=== PATIENT | female | born 1945 | race Caucasian/White ===

== ENCOUNTER 2019-05-31 11:11 | Inpatient (IN) | payer BC, MEDICARE ==
[~2019-05-31] VITALS: Ht 170.2 cm; Wt 69.6 kg
[2019-05-31] MEDS ORDERED: FLUO20CA19 PO (11:22)
[2019-05-31] MEDS ORDERED: ASPI81TA85 PO (11:22)
[2019-05-31] MEDS ORDERED: METO1TAB33 PO (11:22)
[2019-05-31] MEDS ORDERED: ROSU40TA4 PO (11:22)
[2019-05-31] MEDS ORDERED: AMIT50TA PO (11:22)
[2019-05-31] MEDS ORDERED: LEVE500T5 PO (11:22)
[2019-05-31] MEDS ORDERED: BUPR150T3 PO (11:22)
[2019-05-31] MEDS ORDERED: LOPE2CA PO (11:22)
[2019-05-31] MEDS ORDERED: CVS10CAP7 PO (11:22)
[2019-05-31] MEDS ORDERED: LISI-542 PO (11:22)
[2019-05-31] MEDS ORDERED: LORazepam 2 MG/ML VIAL (J2060) IV STA (12:08)
--- NOTE | 2019-05-31 12:13 | REP ---
CT BRAIN WITHOUT CONTRAST: CT brain performed without IV contrast. There is mild atrophy. There is no midline shift or mass effect. There are mild periventricular small vessel ischemic changes in the white matter which are probably chronic in nature. In the region of the left basal ganglia and internal capsule, there is a small linear hyperdense focus. This could represent acute thrombus in a lenticulostriate arterial branch, or could represent a tiny focus of acute hemorrhage. There are no other areas of hemorrhage. There are vascular calcifications in the carotid siphons. There appears to be an old small lacunar infarct in the right basal ganglia. IMPRESSION: Linear hyperdense focus in the left basal ganglia/internal capsule region. This could represent acute thrombus in a lenticulostriate arterial branch versus a tiny focus of acute hemorrhage. I see no other acute finding. Dr. Diallo was informed of these findings at the time of the exam by telephone at approximately 11:45 a.m. 05/31/2019. There appears to be an old small lacunar infarct in the right basal ganglia. Electronically Signed by Dennis Myers MD 06/03/2019 12:58 P
[2019-05-31 12:15] LABS: BASO % 0.1 % (0.0-1.0); HEMATOCRIT 36.5 % (36.0-47.0); LYMPH # 0.4 10^3/uL (1.5-4.5); LYMPH % 5.9 % (24.0-44.0); MEAN CORPUSCULAR HEMOGLOBIN 28.2 pg (27.0-33.0); MEAN CORPUSCULAR HGB CONC 32.9 g/dl (32.0-36.5); MEAN CORPUSCULAR VOLUME 85.7 fl (80.0-96.0); MONO # 0.7 10^3/uL (0.0-0.8); NEUTROPHILS # 6.1 10^3/uL (1.8-7.7); NEUTROPHILS % 84.7 % (36.0-66.0); PLATELET COUNT, AUTOMATED 129 10^3/uL (150-450); RED BLOOD COUNT 4.26 10^6/uL (4.00-5.40); WHITE BLOOD COUNT 7.2 10^3/uL (4.0-10.0)
--- NOTE | 2019-05-31 12:16 | REP ---
PORTABLE CHEST X-RAY: Single view. HISTORY: CVA. Comparison chest x-ray is from July 07, 2006. FINDINGS: There is a new fairly large hiatal hernia. There is an alveolar opacity in the left base consistent with an infiltrate. This is large. The left hemidiaphragm is obscured and I cannot exclude left pleural fluid. Heart is enlarged. Pulmonary vasculature is not increased. EKG electrodes are seen. Right lung is clear. IMPRESSION: Large infiltrate left base question pneumonia. Large hiatal hernia. Mildly prominent heart. Question small left effusion. Electronically Signed by Matt Ye MD 05/31/2019 12:40 P
[2019-05-31 12:25] LABS: INR 1.29; PARTIAL THROMBOPLASTIN TIME 33.2 SECONDS (25.0-38.4); PROTHROMBIN TIME 15.8 SECONDS (11.8-14.0)
[2019-05-31 12:43] LABS: BLOOD UREA NITROGEN 19 MG/DL (7-18); CALCIUM LEVEL 7.9 MG/DL (8.8-10.2); CARBON DIOXIDE LEVEL 25 MEQ/L (21-32); CHLORIDE LEVEL 97 MEQ/L (98-107); CK-MB VALUE MASS < 1.0 NG/ML (<3.6); CPK CREATINE PHOSPHOKINASE 74 U/L (26-192); CREATININE FOR GFR 1.03 MG/DL (0.55-1.30); GLOMERULAR FILTRATION RATE 55.6 (>39); GLUCOSE, FASTING 103 MG/DL (70-100); MB/CK RELATIVE INDEX 1.35 (< OR =4); POTASSIUM SERUM 4.4 MEQ/L (3.5-5.1); SODIUM LEVEL 130 MEQ/L (136-145); TROPONIN I < 0.02 NG/ML (< 0.10)
[2019-05-31] MEDS ORDERED: PROHANCE 279.3MG/ML 15ML VIAL (A9576) As Ordered ONE (12:47)
[2019-05-31] MEDS ORDERED: ISOVUE-370 76% 100ML VIAL (Q9967) As Ordered ONE (14:00)
--- NOTE | 2019-05-31 14:19 | REP ---
MR ANGIOGRAPHY OF THE CAROTIDS WITHOUT AND WITH IV CONTRAST: HISTORY: Dizziness. Weakness. Possible bleed. CONTRAST ENHANCEMENT DOSE: 12 mL of intravenous ProHance. MR ANGIOGRAPHIC FINDINGS: The visualized thoracic arch and great vessel origins are unremarkable. Vertebral arteries are patent and codominant. Common carotid arteries are unremarkable. There is moderate atherosclerotic plaquing in the proximal ICAs bilaterally with evidence of focal weblike high-grade stenosis in the proximal ICA on the right, 75% stenosis. There is a 1 cm long irregular plaque with 75% stenosis of the left proximal ICA as well. The distal internal carotid arteries are patent and unremarkable. IMPRESSION: Findings consistent with 75% stenosis in the proximal internal carotid arteries bilaterally. Electronically Signed by Matt Ye MD 05/31/2019 08:14 P
--- NOTE | 2019-05-31 14:55 | REP ---
MRI BRAIN WITHOUT CONTRAST: HISTORY: Confusion weakness and dizziness. Possible bleed. CT study May 31, 2019 TECHNIQUE: Axial and sagittal imaging planes are utilized for T1 and T2-weighted scans. Sequences include spin-echo, fast spin echo, FLAIR, and diffusion weighted sequences. MRI FINDINGS: No calvarial abnormality is seen. Craniocervical junction upper cervical cord are unremarkable. There is mild motion artifact on several of the sequences. There is a subcentimeter lacunar infarct in the right basal ganglia as seen on CT. Diffusion weighted scans show no evidence of restricted diffusion to suggest acute ischemia. There is mild generalized atrophy and there are multifocal areas of subcortical and periventricular white matter hyperintensities on T2-weighted scans consistent with small vessel atherosclerotic changes. There is no evidence of intracranial hemorrhage or acute infarction or mass. IMPRESSION: Generalized volume loss, small vessel atherosclerotic changes, old lacunar infarct right basal ganglia. No acute intracranial lesion. Electronically Signed by Matt Ye MD 05/31/2019 08:15 P
[2019-05-31] MEDS ORDERED: cefTRIAXone SOD 2 GM in D5W MINI-BAG PLUS 50 ML IV ONE (15:15)
[2019-05-31] MEDS ORDERED: NS 1,000 ML IV ONE (15:15)
[2019-05-31] MEDS ORDERED: AZITHROMYCIN INJ 500 MG, VIAL MATE ADAPTER 1 EACH in D5W 250 ML IV ONE (15:15)
--- NOTE | 2019-05-31 15:34 | REP ---
CT ANGIOGRAM OF THE CHEST: TECHNIQUE: Axial contrast enhanced images from the thoracic inlet to the upper abdomen using 100 mL Isovue 370 intravenous contrast material with multiplanar reformations. There is no CT evidence of pulmonary embolism. There is no thoracic aortic aneurysm or dissection. Scattered atherosclerotic calcifications are seen of the thoracic aorta. Slightly prominent mediastinal and left hilar lymph nodes are likely reactive. Heart is normal in size. There is very mild pericardial fluid. There is a small left effusion. Left lower lobe consolidation is present. There is a large hiatal hernia. Several tiny calcified granulomas are seen in the right lung. IMPRESSION: Consolidative infiltrate left lower lobe with small left effusion. Reactive left hilar and mediastinal lymph nodes. Tiny pericardial effusion. Large hiatal hernia. Electronically Signed by Dennis Myers MD 06/03/2019 01:06 P
--- NOTE | 2019-05-31 16:04 | HPEPDOC ---
[facility] Medical History & Physical Date of Admission May 31, 2019 History and Physical CHIEF COMPLAINT: dizziness, malaise HISTORY OF PRESENT ILLNESS: 74 yo female for one week history of generalized weakness, malaise, fatigue and dizziness. Denies shortness of breath but notes coughing. Denies chest pain, abdominal pain, N/V/D. PAST MEDICAL HISTORY: 1. CAD/stents x 2 RCA, 2000 2. Colon CA s/p resection 2016 3. depression 4. HTN 5. DLP 6. Frontal lobe seizures 7. nicotine abuse PAST SURGICAL HISTORY: 1. colon resection ALLERGIES: Please see below. REVIEW OF SYSTEMS: Negative except as per HPI HOME MEDICATIONS: Please see below. PHYSICAL EXAMINATION: VITAL SIGNS: See below GENERAL APPEARANCE: NAD, lying comfortably in bed HEENT: NC/AT, EOMI CARDIOVASCULAR: +S1S2, RRR LUNGS: diminished breath sounds on left, CTA ABDOMEN: soft, NT, +BS PSYCHIATRIC: AAOx3 LABORATORY DATA: See below. MICROBIOLOGY: Please see below. ASSESSMENT: 74 yo female for multiple symptoms for one week including dizziness, malaise, lethargy, fatigue found to have left lower lobe pneumonia #CAP - IV ceftriaxone/azithromycin - IV fluids - SCx, BCX pending #acute hypoxic respiratory failure - secondary to PNA - supplemental oxygen as needed, wean as tolerated #carotid artery disease - o/p follow up #HTN/#CAD - aspirin, lisinopril, metoprolol #seizure d/o - amitriptyline, bupropion #DLP - rosuvastatin #depression - fluoxetine #Hx colon CA #nicotine abuse - nicotine replacement therapy if requested - counselling provided at bedside #DVT prophylaxis - lovenox Vital Signs Vital Signs Date Time Temp Pulse Resp B/P (MAP) Pulse Ox O2 Delivery O2 Flow Rate FiO2 05/31/19 15:30 72 16 98 Nasal Cannula 2.0 05/31/19 14:46 90/67 (75) 05/31/19 12:15 97.3 Laboratory Data Labs 24H Laboratory Tests 2 05/31/19 11:49: Bedside Glucose (Misc Panel) 108 05/31/19 11:58: Immature Granulocyte % (Auto) 0.3, White Blood Count 7.2, Red Blood Count 4.26, Hemoglobin 12.0, Hematocrit 36.5, Mean Corpuscular Volume 85.7, Mean Corpuscular Hemoglobin 28.2, Mean Corpuscular Hemoglobin Concent 32.9, Red Cell Distribution Width 15.3H, Platelet Count 129L, Neutrophils (%) (Auto) 84.7H, Lymphocytes (%) (Auto) 5.9L, Monocytes (%) (Auto) 9.0H, Eosinophils (%) (Auto) 0.0, Basophils (%) (Auto) 0.1, Neutrophils # (Auto) 6.1, Lymphocytes # (Auto) 0.4L, Monocytes # (Auto) 0.7, Eosinophils # (Auto) 0.0, Basophils # (Auto) 0.0, Nucleated Red Blood Cells % (auto) 0.0, Prothrombin Time 15.8H, Prothromb Time International Ratio 1.29, Activated Partial Thromboplast Time 33.2, Anion Gap 8, Glomerular Filtration Rate 55.6, Blood Urea Nitrogen 19H, Creatinine 1.03, Sodium Level 130L, Potassium Level 4.4, Chloride Level 97L, Carbon Dioxide Level 25, Calcium Level 7.9L, Total Creatine Kinase 74, Creatine Kinase MB < 1.0, Creatine Kinase MB Relative Index 1.35, Troponin I < 0.02 05/31/19 12:18: POC Glucose (Misc Panel) 107H, POC Sodium (Misc Panel) 128L, POC Potassium (Misc Panel) 4.2, POC Chloride (Misc Panel) 92L, POC Total CO2 (Misc Panel) 23.0, POC Blood Urea Nitrogen (Misc Panel 17, POC Ionized Calcium (Misc Panel) 4.4L, POC Creatinine (Misc Panel) 1.0, POC Hematocrit (Misc Panel) 37.0L 05/31/19 15:31: CBC/BMP Laboratory Tests 05/31/19 11:58 Red Blood Count 4.26, Mean Corpuscular Volume 85.7, Mean Corpuscular Hemoglobin 28.2, Mean Corpuscular Hemoglobin Concent 32.9, Red Cell Distribution Width 15.3 H, Neutrophils (%) (Auto) 84.7 H, Lymphocytes (%) (Auto) 5.9 L, Monocytes (%) (Auto) 9.0 H, Eosinophils (%) (Auto) 0.0, Basophils (%) (Auto) 0.1, Neutrophils # (Auto) 6.1, Lymphocytes # (Auto) 0.4 L, Monocytes # (Auto) 0.7, Eosinophils # (Auto) 0.0, Basophils # (Auto) 0.0, Calcium Level 7.9 L, Total Creatine Kinase 74 Microbiology Microbiology 05/31/19 Blood Culture, Received Pending Home Medications Scheduled Amitriptyline HCl (Amitriptyline HCl) 50 Mg Tablet, 50 MG PO QHS Aspirin (Aspir 81) 81 Mg Tablet.dr, 81 MG PO QHS Bupropion Hcl (Bupropion Xl) 150 Mg Tab.er.24h, 150 MG PO QHS Fluoxetine Hcl (Fluoxetine HCl) 20 Mg Capsule, 20 MG PO QHS Lisinopril (Lisinopril) 5 Mg Tablet, 5 MG PO QHS Loperamide HCl (Loperamide) 2 Mg Capsule, 4 MG PO QHS Melatonin (Melatonin) 10 Mg Capsule, 10 MG PO QHS Metoprolol Succinate (Metoprolol Succinate) 100 Mg Tab.er.24h, 100 MG PO QHS Rosuvastatin Calcium (Rosuvastatin Calcium) 40 Mg Tablet, 40 MG PO QHS levETIRAcetam (levETIRAcetam) 500 Mg Tablet, 1,000 MG PO QHS Allergies Coded Allergies: No Known Allergies (Unverified , 05/31/19) A-FIB/CHADSVASC A-FIB History Current/History of A-Fib/PAF?: No Current PO Anticoag Therapy: HARPREET Valenzuela MD May 31, 2019 16:04
[2019-05-31 18:20] VITALS: BP 163/68
[2019-05-31] MEDS: NS 1,000 ML IV SCH (18:48)
[2019-05-31 20:28] VITALS: BP 120/57
[2019-05-31] MEDS: ASPIRIN 81 MG ENTERIC TAB PO SCH (20:33)
[2019-05-31] MEDS: levETIRAcetam 250MG TABLET (KEPPRA) PO SCH (20:33)
[2019-05-31] MEDS: LOPERAMIDE 2 MG CAP PO SCH (20:34)
--- NOTE | 2019-05-31 20:36 | ECGEPIP ---
[facility] - ED Test Date: 2019-05-31 Pat Name: KIT ZIMMER Department: Room: - Gender: Female Nutrition Services Aide: : 1945 Requested By: Sd Diallo Order Number: [id number] Reading MD: Sd Diallo Measurements Intervals [place] Rate: 73 P: 48 VA: 172 QRS: QRSD: 115 T: 9 QT: 410 QTc: 452 Interpretive Statements SINUS RHYTHM MODERATE INTRAVENTRICULAR CONDUCTION DELAY MINIMAL ST DEPRESSION LAD NO PRIOR ECG FOR COMPAIRSON NONSPECIFIC ST T WAVE CHANGES DELAYED R WAVE PROGRESSION BORDERLINE PROLONGED QTC Electronically Signed on 05-31-2019 20:35:50 EDT by Sd Diallo
[2019-05-31] MEDS: ROSUVASTATIN 10 MG TAB (CRESTOR) PO SCH (20:37)
[2019-05-31] MEDS: FLUoxetine 20 MG CAP PO SCH (20:37)
[2019-05-31] MEDS: LISINOPRIL 5 MG TAB PO SCH (20:37)
[2019-05-31] MEDS: buPROPion **XL** TABLET 150MG (WELLBUTRIN XL) PO SCH (20:38)
[2019-05-31] MEDS: AMITRIPTYLINE 50 MG TAB PO SCH (20:38)
[2019-05-31] MEDS: METOPROLOL SUCC (TopROL XL) 100MG *XL* TAB PO SCH (20:38)
[2019-06-01] MEDS: ACETAMINOPHEN TAB 650MG DOSE (2X325MG) PO PRN ×3 (02:14→21:27)
[2019-06-01] MEDS: NS 1,000 ML IV SCH ×3 (05:07→23:57)
[2019-06-01 06:00] VITALS: BP 150/69
[2019-06-01 06:47] LABS: BASO % 0.1 % (0.0-1.0); HEMATOCRIT 32.2 % (36.0-47.0); HEMOGLOBIN 10.5 g/dl (12.0-15.5); LYMPH # 0.3 10^3/uL (1.5-4.5); LYMPH % 4.1 % (24.0-44.0); MEAN CORPUSCULAR HEMOGLOBIN 27.8 pg (27.0-33.0); MEAN CORPUSCULAR HGB CONC 32.6 g/dl (32.0-36.5); MEAN CORPUSCULAR VOLUME 85.2 fl (80.0-96.0); MONO # 0.5 10^3/uL (0.0-0.8); NEUTROPHILS # 6.5 10^3/uL (1.8-7.7); NEUTROPHILS % 88.4 % (36.0-66.0); PLATELET COUNT, AUTOMATED 119 10^3/uL (150-450); RED BLOOD COUNT 3.78 10^6/uL (4.00-5.40); WHITE BLOOD COUNT 7.4 10^3/uL (4.0-10.0)
[2019-06-01 07:02] LABS: ALBUMIN 2.5 GM/DL (3.2-5.2); BILIRUBIN,TOTAL 0.2 MG/DL (0.2-1.0); CALCIUM LEVEL 7.5 MG/DL (8.8-10.2); CREATININE FOR GFR 1.12 MG/DL (0.55-1.30); GLOMERULAR FILTRATION RATE 50.5 (>39); POTASSIUM SERUM 4.2 MEQ/L (3.5-5.1); TOTAL PROTEIN 5.1 GM/DL (6.4-8.2)
[2019-06-01] MEDS: cefTRIAXone SOD 1 GM in D5W MINI-BAG PLUS 50 ML IV SCH (08:44)
[2019-06-01] MEDS ORDERED: ENOXAPARIN 30 MG/0.3 ML SYR (J1650) SC SCH (09:00)
--- NOTE | 2019-06-01 10:19 | IPNPDOC ---
Text Note Date of Service The patient was seen on 06/01/19. NOTE Subjective: Patient seen and examined at bedside. No acute overnight events reported. No new medical complaints. States her breathing feels better. Still has cough. Objective: PHYSICAL EXAMINATION: VITAL SIGNS: See below GENERAL APPEARANCE: NAD, lying comfortably in bed HEENT: NC/AT, EOMI CARDIOVASCULAR: +S1S2, RRR LUNGS: diminished breath sounds on left, CTA ABDOMEN: soft, NT, +BS PSYCHIATRIC: AAOx3 LABORATORY DATA: See below. MICROBIOLOGY: Please see below. ASSESSMENT: 74 yo female for multiple symptoms for one week including dizziness, malaise, lethargy, fatigue found to have left lower lobe pneumonia #CAP - IV ceftriaxone/azithromycin - SCx, BCX pending #acute hypoxic respiratory failure - secondary to PNA - supplemental oxygen as needed, wean as tolerated #carotid artery disease - o/p follow up #HTN/#CAD - aspirin, lisinopril, metoprolol #seizure d/o - amitriptyline, bupropion #DLP - rosuvastatin #depression - fluoxetine #Hx colon CA #nicotine abuse - nicotine replacement therapy if requested - counselling provided at bedside #DVT prophylaxis - lovenox VS,Fishbone, I+O VS, Fishbone, I+O Laboratory Tests 05/31/19 11:58 Red Blood Count 4.26, Mean Corpuscular Volume 85.7, Mean Corpuscular Hemoglobin 28.2, Mean Corpuscular Hemoglobin Concent 32.9, Red Cell Distribution Width 15.3 H, Neutrophils (%) (Auto) 84.7 H, Lymphocytes (%) (Auto) 5.9 L, Monocytes (%) (Auto) 9.0 H, Eosinophils (%) (Auto) 0.0, Basophils (%) (Auto) 0.1, Neutrophils # (Auto) 6.1, Lymphocytes # (Auto) 0.4 L, Monocytes # (Auto) 0.7, Eosinophils # (Auto) 0.0, Basophils # (Auto) 0.0, Calcium Level 7.9 L, Total Creatine Kinase 74 06/01/19 06:21 Red Blood Count 3.78 L, Mean Corpuscular Volume 85.2, Mean Corpuscular Hemoglobin 27.8, Mean Corpuscular Hemoglobin Concent 32.6, Red Cell Distribution Width 15.9 H, Neutrophils (%) (Auto) 88.4 H, Lymphocytes (%) (Auto) 4.1 L, Monocytes (%) (Auto) 7.0 H, Eosinophils (%) (Auto) 0.0, Basophils (%) (Auto) 0.1, Neutrophils # (Auto) 6.5, Lymphocytes # (Auto) 0.3 L, Monocytes # (Auto) 0.5, Eosinophils # (Auto) 0.0, Basophils # (Auto) 0.0, Calcium Level 7.5 L, Aspartate Amino Transf (AST/SGOT) 53 H, Alanine Aminotransferase (ALT/SGPT) 31, Alkaline Phosphatase 74, Total Bilirubin 0.2, Total Protein 5.1 L, Albumin 2.5 L Vital Signs Date Time Temp Pulse Resp B/P (MAP) Pulse Ox O2 Delivery O2 Flow Rate FiO2 06/01/19 08:45 2.0 06/01/19 06:00 98.5 78 16 150/69 (96) 92 05/31/19 15:30 Nasal Cannula I&O- Last 24 Hours up to 6 AM 06/01/19 06:00 Intake Total 2840 ml Output Total 300 ml Balance 2540 ml HARPREET NAJERA MD Jun 01, 2019 10:19
[2019-06-01] MEDS: AZITHROMYCIN INJ 500 MG, VIAL MATE ADAPTER 1 EACH in D5W 250 ML IV SCH (11:11)
[2019-06-01 14:00] VITALS: BP 119/55
[2019-06-01 21:14] VITALS: BP 154/70
[2019-06-01] MEDS: ROSUVASTATIN 10 MG TAB (CRESTOR) PO SCH (21:25)
[2019-06-01] MEDS: levETIRAcetam 250MG TABLET (KEPPRA) PO SCH (21:25)
[2019-06-01] MEDS: LISINOPRIL 5 MG TAB PO SCH (21:26)
[2019-06-01] MEDS: LOPERAMIDE 2 MG CAP PO SCH (21:26)
[2019-06-01] MEDS: FLUoxetine 20 MG CAP PO SCH (21:27)
[2019-06-01] MEDS: METOPROLOL SUCC (TopROL XL) 100MG *XL* TAB PO SCH (21:27)
[2019-06-01] MEDS: ASPIRIN 81 MG ENTERIC TAB PO SCH (21:27)
[2019-06-01] MEDS: buPROPion **XL** TABLET 150MG (WELLBUTRIN XL) PO SCH (21:28)
[2019-06-01] MEDS: AMITRIPTYLINE 50 MG TAB PO SCH (21:28)
[2019-06-01] MEDS ORDERED: ENOXAPARIN 80 MG/0.8 ML SYRINGE (J1650) SC ONE (22:45)
--- NOTE | 2019-06-01 22:51 | IPNPDOC ---
Text Note Date of Service 06/01/19. NOTE Called by the bedside nurse about the patient's elevated HR on exam. EKG ordered and revealed A-Fib with RVR with a HR of 125. B/P stable and patient asymptomatic. Patient does not endorse any history of the same in the past. Remote Telemetry and 2D ECHO ordered. The patient denies any history of bleeding in the past. We will give the patient one dose of Lovenox SC 70mg. She will need to be started on PO Anticoagulation for stroke prophylaxis, I will defer this to her primary attending for the AM. Risks, benefits, and alternative options to anticoagulation therapy to be discussed. VS,Fishbone, I+O VS, Fishbone, I+O Laboratory Tests 06/01/19 06:21 Red Blood Count 3.78 L, Mean Corpuscular Volume 85.2, Mean Corpuscular Hemoglobin 27.8, Mean Corpuscular Hemoglobin Concent 32.6, Red Cell Distribution Width 15.9 H, Neutrophils (%) (Auto) 88.4 H, Lymphocytes (%) (Auto) 4.1 L, Monocytes (%) (Auto) 7.0 H, Eosinophils (%) (Auto) 0.0, Basophils (%) (Auto) 0. 1, Neutrophils # (Auto) 6.5, Lymphocytes # (Auto) 0.3 L, Monocytes # (Auto) 0.5, Eosinophils # (Auto) 0.0, Basophils # (Auto) 0.0, Calcium Level 7.5 L, Aspartate Amino Transf (AST/SGOT) 53 H, Alanine Aminotransferase (ALT/SGPT) 31, Alkaline Phosphatase 74, Total Bilirubin 0.2, Total Protein 5.1 L, Albumin 2.5 L Vital Signs Date Time Temp Pulse Resp B/P (MAP) Pulse Ox O2 Delivery O2 Flow Rate FiO2 06/01/19 21:58 98.8 06/01/19 21:27 112 154/70 06/01/19 14:00 20 93 2.0 05/31/19 15:30 Nasal Cannula I&O- Last 24 Hours up to 6 AM 06/01/19 06:00 Intake Total 2840 ml Output Total 300 ml Balance 2540 ml ROSLYN CEBALLOS MD Jun 01, 2019 22:51
[2019-06-01 23:13] VITALS: BP_SYST 108; BP_SYST 86; BP_DIAS 40; BP_DIAS 54
[2019-06-02 02:32] VITALS: BP 108/50
[2019-06-02 06:00] VITALS: BP 125/69
--- NOTE | 2019-06-02 06:22 | ECGEPIP ---
[facility] Test Date: 2019-06-01 Pat Name: KIT ZIMMER Department: Room: [place] [address] Gender: Female Stylist Apprentice: FRAN : 1945 Requested By: ROSLYN CEBALLOS Order Number: [id number] Reading MD: Roxane Valdez Measurements Intervals [place] Rate: 125 P: TN: -1 QRS: QRSD: 126 T: 74 QT: 334 QTc: 482 Interpretive Statements ATRIAL FIBRILLATION WITH RAPID VENTRICULAR RESPONSE PRIOR WITH NSR MODERATE INTRAVENTRICULAR CONDUCTION DELAY ST & T-WAVE ABNORMALITY NEW PROLONG QTC NEW LAD C/W 05/31/19 Electronically Signed on 06-02-2019 6:22:16 EDT by Roxane Valdez
[2019-06-02 06:47] VITALS: BP 134/54
[2019-06-02 07:32] LABS: BASO % 0.4 % (0.0-1.0); EOS % 0.2 % (0.0-3.0); HEMATOCRIT 30.1 % (36.0-47.0); HEMOGLOBIN 9.9 g/dl (12.0-15.5); LYMPH # 0.4 10^3/uL (1.5-4.5); LYMPH % 6.5 % (24.0-44.0); MEAN CORPUSCULAR HEMOGLOBIN 28.7 pg (27.0-33.0); MEAN CORPUSCULAR HGB CONC 32.9 g/dl (32.0-36.5); MEAN CORPUSCULAR VOLUME 87.2 fl (80.0-96.0); MONO # 0.4 10^3/uL (0.0-0.8); MONO % 6.7 % (0.0-5.0); NEUTROPHILS # 4.7 10^3/uL (1.8-7.7); NEUTROPHILS % 85.8 % (36.0-66.0); PLATELET COUNT, AUTOMATED 120 10^3/uL (150-450); RED BLOOD COUNT 3.45 10^6/uL (4.00-5.40); WHITE BLOOD COUNT 5.5 10^3/uL (4.0-10.0)
[2019-06-02 07:53] LABS: CALCIUM LEVEL 7.6 MG/DL (8.8-10.2); CREATININE FOR GFR 1.13 MG/DL (0.55-1.30)
[2019-06-02] MEDS: cefTRIAXone SOD 1 GM in D5W MINI-BAG PLUS 50 ML IV SCH (08:40)
--- NOTE | 2019-06-02 09:14 | IPNPDOC ---
Text Note Date of Service The patient was seen on 06/02/19. NOTE Subjective: Patient seen and examined at bedside. Overnight events significant for rapid afib, which appears to be new. Patient is not aware of any previous incidents of afib. No new medical complaints. States her breathing feels better. Still has cough. Objective: PHYSICAL EXAMINATION: VITAL SIGNS: See below GENERAL APPEARANCE: NAD, lying comfortably in bed HEENT: NC/AT, EOMI CARDIOVASCULAR: +S1S2, RRR LUNGS: diminished breath sounds on left, CTA ABDOMEN: soft, NT, +BS PSYCHIATRIC: AAOx3 LABORATORY DATA: See below. MICROBIOLOGY: Please see below. ASSESSMENT: 74 yo female for multiple symptoms for one week including dizziness, malaise, lethargy, fatigue found to have left lower lobe pneumonia #CAP - IV ceftriaxone/azithromycin - SCx, BCX pending #afib - echo pending - telemetry - d/w patient regarding need for anticoagulation - for now continue with therapeutic lovenox - can transition to DOAC closer to discharge or when patient stabilizes #acute hypoxic respiratory failure - secondary to PNA - supplemental oxygen as needed, wean as tolerated #carotid artery disease - o/p follow up #HTN/#CAD - aspirin, lisinopril, metoprolol #seizure d/o - amitriptyline, bupropion #DLP - rosuvastatin #depression - fluoxetine #Hx colon CA #nicotine abuse - nicotine replacement therapy if requested - counselling provided at bedside #DVT prophylaxis - lovenox VS,Fishbone, I+O VS, Fishbone, I+O Laboratory Tests 06/02/19 06:48 Red Blood Count 3.45 L, Mean Corpuscular Volume 87.2, Mean Corpuscular Hemoglobin 28.7, Mean Corpuscular Hemoglobin Concent 32.9, Red Cell Distribution Width 16.3 H, Neutrophils (%) (Auto) 85.8 H, Lymphocytes (%) (Auto) 6.5 L, Monocytes (%) (Auto) 6.7 H, Eosinophils (%) (Auto) 0.2, Basophils (%) (Auto) 0.4, Neutrophils # (Auto) 4.7, Lymphocytes # (Auto) 0.4 L, Monocytes # (Auto) 0.4, Eosinophils # (Auto) 0.0, Basophils # (Auto) 0.0, Calcium Level 7.6 L Vital Signs Date Time Temp Pulse Resp B/P (MAP) Pulse Ox O2 Delivery O2 Flow Rate FiO2 06/02/19 08:45 1.0 06/02/19 06:47 73 134/54 (80) 06/02/19 06:00 96.7 18 94 05/31/19 15:30 Nasal Cannula I&O- Last 24 Hours up to 6 AM 06/02/19 06:00 Intake Total 1560 ml Output Total 700 ml Balance 860 ml HARPREET NAJERA MD Jun 02, 2019 09:14
[2019-06-02] MEDS: AZITHROMYCIN INJ 500 MG, VIAL MATE ADAPTER 1 EACH in D5W 250 ML IV SCH (10:57)
[2019-06-02] MEDS: ENOXAPARIN 60 MG/0.6 ML SYR (J1650) SC SCH ×2 (10:57→21:28)
[2019-06-02] MEDS: NS 1,000 ML IV SCH (11:01)
[2019-06-02 14:30] VITALS: BP 182/81
[2019-06-02 21:17] VITALS: BP 168/78
[2019-06-02] MEDS: levETIRAcetam 250MG TABLET (KEPPRA) PO SCH (21:26)
[2019-06-02] MEDS: ROSUVASTATIN 10 MG TAB (CRESTOR) PO SCH (21:26)
[2019-06-02] MEDS: buPROPion **XL** TABLET 150MG (WELLBUTRIN XL) PO SCH (21:27)
[2019-06-02] MEDS: AMITRIPTYLINE 50 MG TAB PO SCH (21:27)
[2019-06-02] MEDS: LOPERAMIDE 2 MG CAP PO SCH (21:27)
[2019-06-02] MEDS: METOPROLOL SUCC (TopROL XL) 100MG *XL* TAB PO SCH (21:27)
[2019-06-02] MEDS: LISINOPRIL 5 MG TAB PO SCH (21:27)
[2019-06-02] MEDS: FLUoxetine 20 MG CAP PO SCH (21:28)
[2019-06-02] MEDS: ASPIRIN 81 MG ENTERIC TAB PO SCH (21:28)
[2019-06-02 22:00] VITALS: BP 138/78
[2019-06-03] MEDS: NS 1,000 ML IV SCH ×2 (00:21→04:39)
[2019-06-03 05:16] VITALS: BP 140/64
[2019-06-03 06:00] VITALS: BP 135/81
[2019-06-03 06:26] LABS: BASO % 0.2 % (0.0-1.0); EOS % 0.2 % (0.0-3.0); HEMATOCRIT 27.5 % (36.0-47.0); HEMOGLOBIN 8.8 g/dl (12.0-15.5); LYMPH # 0.4 10^3/uL (1.5-4.5); LYMPH % 7.8 % (24.0-44.0); MEAN CORPUSCULAR VOLUME 84.4 fl (80.0-96.0); MONO # 0.5 10^3/uL (0.0-0.8); MONO % 10.4 % (0.0-5.0); NEUTROPHILS # 3.8 10^3/uL (1.8-7.7); PLATELET COUNT, AUTOMATED 147 10^3/uL (150-450); RED BLOOD COUNT 3.26 10^6/uL (4.00-5.40); WHITE BLOOD COUNT 4.7 10^3/uL (4.0-10.0)
[2019-06-03 06:47] LABS: CREATININE FOR GFR 1.02 MG/DL (0.55-1.30); GLOMERULAR FILTRATION RATE 56.2 (>39); POTASSIUM SERUM 3.6 MEQ/L (3.5-5.1)
[2019-06-03] MEDS: ENOXAPARIN 60 MG/0.6 ML SYR (J1650) SC SCH ×2 (08:19→20:45)
[2019-06-03] MEDS: cefTRIAXone SOD 1 GM in D5W MINI-BAG PLUS 50 ML IV SCH (08:19)
--- NOTE | 2019-06-03 10:31 | REP ---
MR angiography the brain without contrast: History: Dizziness, weakness. Possible bleed. Technique: 3-D [id number] MR angiography of the brain is acquired in the usual fashion and maximal intensity projection images were generated in rotational format about the vertical and horizontal axes. In addition, source axial T1-weighted images are viewed in cine mode. MR angiographic findings: There is mild motion artifact. The distal vertebral arteries are patent and co-dominant. Basilar artery is a little tortuous but widely patent. The posterior cerebral and superior cerebellar vessels are normal and symmetric. The distal internal carotid arteries are unremarkable. Anterior and middle cerebral arteries appear intact. There is no visible alvarez aneurysm or arteriovenous malformation. Impression: Unremarkable MR angiography the brain. Electronically Signed by Matt Ye MD 05/31/2019 01:37 P
[2019-06-03] MEDS: AZITHROMYCIN INJ 500 MG, VIAL MATE ADAPTER 1 EACH in D5W 250 ML IV SCH (11:17)
[2019-06-03 11:47] LABS: HIV 1&2 SCREEN CENTAUR NEGATIVE (NEGATIVE)
[2019-06-03 14:00] VITALS: BP 150/70
[2019-06-03] MEDS: buPROPion **XL** TABLET 150MG (WELLBUTRIN XL) PO SCH (20:45)
[2019-06-03] MEDS: LOPERAMIDE 2 MG CAP PO SCH (20:45)
[2019-06-03] MEDS: levETIRAcetam 250MG TABLET (KEPPRA) PO SCH (20:45)
[2019-06-03] MEDS: FLUoxetine 20 MG CAP PO SCH (20:45)
[2019-06-03] MEDS: AMITRIPTYLINE 50 MG TAB PO SCH (20:45)
[2019-06-03] MEDS: ASPIRIN 81 MG ENTERIC TAB PO SCH (20:46)
[2019-06-03] MEDS: METOPROLOL SUCC (TopROL XL) 100MG *XL* TAB PO SCH (20:46)
[2019-06-03] MEDS: ROSUVASTATIN 10 MG TAB (CRESTOR) PO SCH (20:46)
[2019-06-03] MEDS: LISINOPRIL 5 MG TAB PO SCH (20:46)
[2019-06-03 22:00] VITALS: BP 180/78
--- NOTE | 2019-06-03 22:54 | IPNPDOC ---
Text Note Date of Service The patient was seen on 06/03/19. NOTE Pt was seen and examined at bedside. She is very pleasant lady in no acute d istress. Denies any episode of palpitations or dizziness. Denies any chest pain. 2DEcho is pending. PHYSICAL EXAMINATION: VITAL SIGNS: See below GENERAL APPEARANCE: awake alert and oriented NAD HEENT: neck supple no JVD no icterus YENIFER EOMI CARDIOVASCULAR: S1 S2 no murmur LUNGS: clear bilat no wheezing no rales ABDOMEN: soft, NT, +BS PSYCHIATRIC: mood affect appropriate Vital Signs Date Time Temp Pulse Resp B/P (MAP) Pulse Ox O2 Delivery O2 Flow Rate FiO2 06/03/19 22:00 72 130/52 06/03/19 20:46 84 180/78 06/03/19 14:00 97.7 70 19 150/70 (96) 93 2.0 06/03/19 13:28 65 06/03/19 06:00 98.8 80 17 135/81 (99) 95 2.0 06/03/19 05:16 69 12 140/64 (89) 06/03/19 05:16 69 140/64 Intake & Output 06/03/19 06:00 Intake Total 3060 ml Output Total 1050 ml Balance 2010 ml Laboratory Tests 06/03/19 06:01: White Blood Count 4.7, Red Blood Count 3.26L, Hemoglobin 8.8L, Hematocrit 27.5L, Mean Corpuscular Volume 84.4, Mean Corpuscular Hemoglobin 27.0, Mean Corpuscular Hemoglobin Concent 32.0, Red Cell Distribution Width 16.6H, Platelet Count 147L, Neutrophils (%) (Auto) 81.0H, Lymphocytes (%) (Auto) 7.8L, Monocytes (%) (Auto) 10.4H, Eosinophils (%) (Auto) 0.2, Basophils (%) (Auto) 0.2, Neutrophils # (Auto) 3.8, Lymphocytes # (Auto) 0.4L, Monocytes # (Auto) 0.5, Eosinophils # (Auto) 0.0, Basophils # (Auto) 0.0, Immature Granulocyte % (Auto) 0.4, Nucleated Red Blood Cells % (auto) 0.0, Blood Urea Nitrogen 16, Creatinine 1.02, Sodium Level 135L, Potassium Level 3.6, Chloride Level 103, Carbon Dioxide Level 21, Calcium Level 8.0L, Anion Gap 11, Glomerular Filtration Rate 56.2, Fasting Glucose 85 Microbiology 06/01/19 Respiratory Virus Panel (PCR) (DEJUAN) - Final, Complete Current Medications Medications (Trade) Dose Ordered Sig/Edward Route PRN Reason Start Time Stop Time Status Last Admin Dose Admin Acetaminophen (Tylenol Tab) 650 mg Q6HP PRN PO PAIN / FEVER 05/31/19 18:00 06/01/19 21:27 650 MG Amitriptyline HCl (Elavil) 50 mg QHS PO 05/31/19 21:00 06/03/19 20:45 50 MG Aspirin (Ecotrin) 81 mg QHS PO 05/31/19 21:00 06/03/19 20:46 81 MG Azithromycin 500 mg/IV Miscellaneous Supplies 1 each/ Dextrose 255 ml @ 255 mls/hr Q24H IV 06/01/19 11:00 06/03/19 11:17 255 MLS/HR Bupropion HCl (Wellbutrin Xl) 150 mg QHS PO 05/31/19 21:00 06/03/19 20:45 150 MG Ceftriaxone Sodium 1 gm/ Dextrose 50 ml @ 100 mls/hr Q24H IV 06/01/19 09:00 06/03/19 08:19 100 MLS/HR Enoxaparin Sodium (Lovenox) 60 mg Q12H SC 06/02/19 09:00 06/03/19 20:45 60 MG Fluoxetine HCl (PROzac) 20 mg QHS PO 05/31/19 21:00 06/03/19 20:45 20 MG Levetiracetam (Keppra) 1,000 mg QHS PO 05/31/19 21:00 06/03/19 20:45 1,000 MG Lisinopril (Prinivil) 5 mg QHS PO 05/31/19 21:00 06/03/19 20:46 5 MG Loperamide HCl (Imodium) 4 mg QHS PO 05/31/19 21:00 06/03/19 20:45 4 MG Metoprolol Succinate (TopROL XL) 100 mg QHS PO 05/31/19 21:00 06/03/19 20:46 100 MG Rosuvastatin Calcium (Crestor) 40 mg QHS PO 05/31/19 21:00 06/03/19 20:46 40 MG Sodium Chloride 1,000 ml @ 70 mls/hr [id number] IV 06/02/19 00:00 06/03/19 04:39 70 MLS/HR A/P 1-CAP Cont IV ceftriaxone/azithromycin SCx, BCX pending 2-Paroxysmal Atrial Fibrillation 2DEcho telemetry for now continue with therapeutic lovenox - can transition to DOAC closer to discharge or when patient stabilizes 3-Bilat Internal Carotid Stenosis 4-CAD - aspirin, lisinopril, metoprolol 5-seizure d/o - amitriptyline, bupropion 6-DLP - rosuvastatin 7-depression - fluoxetine 8-Hx colon CA 10-nicotine abuse - nicotine replacement therapy if requested - counselling provided at bedside DVT prophylaxis - lovenox Disposition:pending Echo report VS,Damien, I+O VS, Damien, I+O Laboratory Tests 06/03/19 06:01 Red Blood Count 3.26 L, Mean Corpuscular Volume 84.4, Mean Corpuscular Hemoglobin 27.0, Mean Corpuscular Hemoglobin Concent 32.0, Red Cell Distribution Width 16.6 H, Neutrophils (%) (Auto) 81.0 H, Lymphocytes (%) (Auto) 7.8 L, Monocytes (%) (Auto) 10.4 H, Eosinophils (%) (Auto) 0.2, Basophils (%) (Auto) 0.2, Neutrophils # (Auto) 3.8, Lymphocytes # (Auto) 0.4 L, Monocytes # (Auto) 0.5, Eosinophils # (Auto) 0.0, Basophils # (Auto) 0.0, Calcium Level 8.0 L Vital Signs Date Time Temp Pulse Resp B/P (MAP) Pulse Ox O2 Delivery O2 Flow Rate FiO2 06/03/19 22:00 72 130/52 06/03/19 14:00 97.7 19 93 2.0 05/31/19 15:30 Nasal Cannula I&O- Last 24 Hours up to 6 AM 06/03/19 06:00 Intake Total 3060 ml Output Total 1050 ml Balance 2010 ml CHANDRAKANT BULLOCK MD Jun 03, 2019 22:54
[2019-06-04 06:00] VITALS: BP 128/74
[2019-06-04 06:07] LABS: BASO % 0.3 % (0.0-1.0); EOS # 0.1 10^3/uL (0.0-0.50); EOS % 1.9 % (0.0-3.0); HEMOGLOBIN 9.3 g/dl (12.0-15.5); LYMPH # 0.6 10^3/uL (1.5-4.5); LYMPH % 16.6 % (24.0-44.0); MEAN CORPUSCULAR HEMOGLOBIN 28.2 pg (27.0-33.0); MEAN CORPUSCULAR HGB CONC 33.2 g/dl (32.0-36.5); MEAN CORPUSCULAR VOLUME 84.8 fl (80.0-96.0); MONO # 0.6 10^3/uL (0.0-0.8); MONO % 16.6 % (0.0-5.0); NEUTROPHILS # 2.3 10^3/uL (1.8-7.7); PLATELET COUNT, AUTOMATED 161 10^3/uL (150-450); WHITE BLOOD COUNT 3.6 10^3/uL (4.0-10.0)
[2019-06-04 06:27] LABS: CALCIUM LEVEL 7.8 MG/DL (8.8-10.2); CREATININE FOR GFR 0.97 MG/DL (0.55-1.30); GLOMERULAR FILTRATION RATE 59.6 (>39); POTASSIUM SERUM 3.9 MEQ/L (3.5-5.1)
--- NOTE | 2019-06-04 06:54 | ECHO ---
DATE OF SERVICE: 06/03/2019 AGE: 74 REFERRING PROVIDER: Dr. Alverto Chavez, Dr. Kaiser Briggs PATIENT LOCATION: Room 4225. REASON FOR THE ECHOCARDIOGRAM: Abnormal EKG. 2D MEASUREMENTS: IVS 1.3 cm LV 5.4 cm LVPW 1.3 cm LA 4.4 cm Aorta 2.7 cm IVC 2.1 cm DOPPLER MEASUREMENTS: Peak velocity across the aortic valve 1.6 m/s Peak velocity across the LVOT 0.74 m/s Peak gradient across aortic valve 10 mmHg. Mitral E 1.1 Mitral A 1.2 with a ratio of 0.9 Maximum tricuspid valve velocity 2.9 m/s 2D COMMENTS: 1. Normal left ventricular size with mildly increased left ventricular wall thickness. Left ventricular systolic function is at the lower limits of normal between 50 and 55%. The inferior wall appeared to be hypokinetic. 2. Mildly enlarged left atrium. Normal right atrium and right ventricle. 3. The atrial septum appeared to be normal without evidence of defect or shunt. 4. Normal aortic root. 5. A small pericardial effusion was noted, no evidence of cardiac tamponade. Pleural effusion also was noted. 6. Mildly calcified aortic valve with normal leaflet excursion. Mildly calcified mitral annulus with normal anterior mitral valve leaflet motion. Could not rule out underlying mitral valve prolapse. Normal tricuspid valve and pulmonic valve. The proximal pulmonary artery branches were not well visualized. 7. The inferior vena cava was mildly enlarged, central venous pressure might be elevated. DOPPLER: It detects moderately severe mitral regurgitation, mild tricuspid regurgitation, trace pulmonic regurgitation. The calculated pulmonary artery systolic pressure varies between 40-50 mmHg. Abnormal relaxation pattern was noted across the mitral valve leaflets as well as mitral valve annulus consistent with features of grade 1 left ventricular diastolic dysfunction. IMPRESSION: 1. Low normal global left ventricular systolic function with regional wall motion abnormalities involving the inferior wall. There were features of left ventricular diastolic dysfunction, grade 1. 2. Moderately severe mitral regurgitation with mitral annulus calcification and mildly enlarged left atrium. Could not rule out underlying mitral valve prolapse. 3. Aortic valve sclerosis with trivial aortic stenosis, but no aortic radiation. 4. Mild tricuspid regurgitation with probably moderate pulmonary hypertension. 5. Small pericardial effusion was noted, no evidence of cardiac tamponade. Pleural effusion was also noted. 6. There were features of elevated central venous pressure, the inferior vena cava/IVC was mildly enlarged. MTDD
[2019-06-04] MEDS: NS 1,000 ML IV SCH (08:55)
[2019-06-04] MEDS: ENOXAPARIN 60 MG/0.6 ML SYR (J1650) SC SCH ×2 (08:56→20:30)
[2019-06-04] MEDS: cefTRIAXone SOD 1 GM in D5W MINI-BAG PLUS 50 ML IV SCH (08:56)
[2019-06-04] MEDS ORDERED: LEVA750T7 PO (09:04)
[2019-06-04] MEDS ORDERED: ELIQ5TAB PO (09:06)
[2019-06-04] MEDS: AZITHROMYCIN INJ 500 MG, VIAL MATE ADAPTER 1 EACH in D5W 250 ML IV SCH (11:44)
[2019-06-04 14:00] VITALS: BP 172/74
--- NOTE | 2019-06-04 15:00 | IPNPDOC ---
Text Note Date of Service The patient was seen on 06/04/19. NOTE Pt was seen and examined at bedside. She is very pleasant lady in no acute d istress. Denies any episode of palpitations or dizziness. Denies any chest pain. 2DEcho report appreciated. Pt requires optimization of physical mobility as per PT, not cleared for DC today. PHYSICAL EXAMINATION: VITAL SIGNS: See below GENERAL APPEARANCE: awake alert and oriented NAD HEENT: neck supple no JVD no icterus YENIFER EOMI CARDIOVASCULAR: S1 S2 no murmur LUNGS: clear bilat no wheezing no rales ABDOMEN: soft, NT, +BS PSYCHIATRIC: mood affect appropriate Vital Signs Date Time Temp Pulse Resp B/P (MAP) Pulse Ox O2 Delivery O2 Flow Rate FiO2 06/04/19 07:44 66 142/64 06/04/19 06:00 97.9 128/74 (92) 2.0 06/03/19 22:00 97.5 83 17 180/78 (112) 95 2.0 06/03/19 22:00 72 130/52 06/03/19 20:46 84 180/78 Intake & Output 06/04/19 06:00 Intake Total 1627 ml Output Total 800 ml Balance 827 ml Laboratory Tests 06/04/19 05:39: White Blood Count 3.6L, Red Blood Count 3.30L, Hemoglobin 9.3L, Hematocrit 28.0L, Mean Corpuscular Volume 84.8, Mean Corpuscular Hemoglobin 28.2, Mean Corpuscular Hemoglobin Concent 33.2, Red Cell Distribution Width 16.8H, Platelet Count 161, Neutrophils (%) (Auto) 64.0, Lymphocytes (%) (Auto) 16.6L, Monocytes (%) (Auto) 16.6H, Eosinophils (%) (Auto) 1.9, Basophils (%) (Auto) 0.3, Neutrophils # (Auto) 2.3, Lymphocytes # (Auto) 0.6L, Monocytes # (Auto) 0.6, Eosinophils # (Auto) 0.1, Basophils # (Auto) 0.0, Immature Granulocyte % (Auto) 0.6, Nucleated Red Blood Cells % (auto) 0.0, Blood Urea Nitrogen 11, Creatinine 0.97, Sodium Level 140, Potassium Level 3.9, Chloride Level 108H, Carbon Dioxide Level 26, Calcium Level 7.8L, Anion Gap 6L, Glomerular Filtration Rate 59.6, Fasting Glucose 86 Microbiology 06/01/19 Respiratory Virus Panel (PCR) ([facility]) - Final, Complete Current Medications Medications (Trade) Dose Ordered Sig/Edward Route PRN Reason Start Time Stop Time Status Last Admin Dose Admin Acetaminophen (Tylenol Tab) 650 mg Q6HP PRN PO PAIN / FEVER 05/31/19 18:00 06/01/19 21:27 650 MG Amitriptyline HCl (Elavil) 50 mg QHS PO 05/31/19 21:00 06/03/19 20:45 50 MG Aspirin (Ecotrin) 81 mg QHS PO 05/31/19 21:00 06/03/19 20:46 81 MG Azithromycin 500 mg/IV Miscellaneous Supplies 1 each/ Dextrose 255 ml @ 255 mls/hr Q24H IV 06/01/19 11:00 06/04/19 11:44 255 MLS/HR Bupropion HCl (Wellbutrin Xl) 150 mg QHS PO 05/31/19 21:00 06/03/19 20:45 150 MG Ceftriaxone Sodium 1 gm/ Dextrose 50 ml @ 100 mls/hr Q24H IV 06/01/19 09:00 06/04/19 08:56 100 MLS/HR Diltiazem HCl (Cardizem) 30 mg Q8H PO 06/01/19 22:00 06/04/19 07:44 30 MG Enoxaparin Sodium (Lovenox) 60 mg Q12H SC 06/02/19 09:00 06/04/19 08:56 60 MG Fluoxetine HCl (PROzac) 20 mg QHS PO 05/31/19 21:00 06/03/19 20:45 20 MG Levetiracetam (Keppra) 1,000 mg QHS PO 05/31/19 21:00 06/03/19 20:45 1,000 MG Lisinopril (Prinivil) 5 mg QHS PO 05/31/19 21:00 06/03/19 20:46 5 MG Loperamide HCl (Imodium) 4 mg QHS PO 05/31/19 21:00 06/03/19 20:45 4 MG Metoprolol Succinate (TopROL XL) 100 mg QHS PO 05/31/19 21:00 06/03/19 20:46 100 MG Rosuvastatin Calcium (Crestor) 40 mg QHS PO 05/31/19 21:00 06/03/19 20:46 40 MG Sodium Chloride 1,000 ml @ 70 mls/hr [id number] IV 06/02/19 00:00 06/04/19 08:55 70 MLS/HR A/P 1-CAP Cont IV ceftriaxone/azithromycin SCx, BCX pending 2-Paroxysmal Atrial Fibrillation 2DEcho telemetry for now continue with therapeutic lovenox - can transition to DOAC closer to discharge or when patient stabilizes 3-Bilat Internal Carotid Stenosis asymptomatic 4-CAD - aspirin, lisinopril, metoprolol 5-seizure d/o - amitriptyline, bupropion 6-DLP - rosuvastatin 7-depression - fluoxetine 8-Hx colon CA 10-nicotine abuse - nicotine replacement therapy if requested - counselling provided at bedside DVT prophylaxis - lovenox Disposition:medically optimized for dc, requires physical optimization as per PT recommendations VS,Damien, I+O VS, Damien, I+O Laboratory Tests 06/04/19 05:39 Red Blood Count 3.30 L, Mean Corpuscular Volume 84.8, Mean Corpuscular Hemoglobin 28.2, Mean Corpuscular Hemoglobin Concent 33.2, Red Cell Distribution Width 16.8 H, Neutrophils (%) (Auto) 64.0, Lymphocytes (%) (Auto) 16.6 L, Monocytes (%) (Auto) 16.6 H, Eosinophils (%) (Auto) 1.9, Basophils (%) (Auto) 0.3, Neutrophils # (Auto) 2.3, Lymphocytes # (Auto) 0.6 L, Monocytes # (Auto) 0.6, Eosinophils # (Auto) 0.1, Basophils # (Auto) 0.0, Calcium Level 7.8 L Vital Signs Date Time Temp Pulse Resp B/P (MAP) Pulse Ox O2 Delivery O2 Flow Rate FiO2 06/04/19 07:44 66 142/64 06/04/19 06:00 97.9 2.0 06/03/19 22:00 17 95 05/31/19 15:30 Nasal Cannula I&O- Last 24 Hours up to 6 AM 06/04/19 06:00 Intake Total 1627 ml Output Total 800 ml Balance 827 ml CHANDRAKANT BULLOCK MD Jun 04, 2019 15:00
[2019-06-04] MEDS: ACETAMINOPHEN TAB 650MG DOSE (2X325MG) PO PRN (18:31)
[2019-06-04] MEDS: LOPERAMIDE 2 MG CAP PO SCH (20:30)
[2019-06-04] MEDS: ROSUVASTATIN 10 MG TAB (CRESTOR) PO SCH (20:30)
[2019-06-04] MEDS: levETIRAcetam 250MG TABLET (KEPPRA) PO SCH (20:30)
[2019-06-04] MEDS: AMITRIPTYLINE 50 MG TAB PO SCH (20:30)
[2019-06-04] MEDS: buPROPion **XL** TABLET 150MG (WELLBUTRIN XL) PO SCH (20:30)
[2019-06-04 20:31] VITALS: BP 164/68
[2019-06-04] MEDS: METOPROLOL SUCC (TopROL XL) 100MG *XL* TAB PO SCH (20:31)
[2019-06-04] MEDS: FLUoxetine 20 MG CAP PO SCH (20:31)
[2019-06-04] MEDS: LISINOPRIL 5 MG TAB PO SCH (20:31)
[2019-06-04] MEDS: ASPIRIN 81 MG ENTERIC TAB PO SCH (20:31)
[2019-06-04 22:00] VITALS: BP 164/68
[2019-06-05] MEDS: NS 1,000 ML IV SCH (01:35)
[2019-06-05 06:00] VITALS: BP 164/78
[2019-06-05 06:28] LABS: BASO % 0.3 % (0.0-1.0); EOS # 0.2 10^3/uL (0.0-0.50); EOS % 4.5 % (0.0-3.0); HEMOGLOBIN 9.8 g/dl (12.0-15.5); LYMPH # 0.6 10^3/uL (1.5-4.5); LYMPH % 18.7 % (24.0-44.0); MEAN CORPUSCULAR HEMOGLOBIN 27.9 pg (27.0-33.0); MEAN CORPUSCULAR HGB CONC 32.7 g/dl (32.0-36.5); MEAN CORPUSCULAR VOLUME 85.5 fl (80.0-96.0); MONO # 0.5 10^3/uL (0.0-0.8); MONO % 14.8 % (0.0-5.0); NEUTROPHILS % 61.4 % (36.0-66.0); PLATELET COUNT, AUTOMATED 197 10^3/uL (150-450); RED BLOOD COUNT 3.51 10^6/uL (4.00-5.40); WHITE BLOOD COUNT 3.3 10^3/uL (4.0-10.0)
[2019-06-05 06:59] LABS: BLOOD UREA NITROGEN 7 MG/DL (7-18); CALCIUM LEVEL 8.2 MG/DL (8.8-10.2); CARBON DIOXIDE LEVEL 26 MEQ/L (21-32); CHLORIDE LEVEL 109 MEQ/L (98-107); CREATININE FOR GFR 0.81 MG/DL (0.55-1.30); GLOMERULAR FILTRATION RATE > 60.0 (>39); GLUCOSE, FASTING 86 MG/DL (70-100); SODIUM LEVEL 142 MEQ/L (136-145)
[2019-06-05] MEDS: ENOXAPARIN 60 MG/0.6 ML SYR (J1650) SC SCH (08:21)
[2019-06-05] MEDS: cefTRIAXone SOD 1 GM in D5W MINI-BAG PLUS 50 ML IV SCH (08:22)
--- NOTE | 2019-06-05 23:29 | DS.PDOC ---
Discharge Summary General Date of Admission May 31, 2019 at 15:57 Date of Discharge June 05, 2019 Attending Physician: CHANDRAKANT BULLOCK MD Discharge Summary PROCEDURES PERFORMED DURING STAY: None ADMITTING DIAGNOSES: 1. Pneumonia 2. acute hypoxic respiratory failure 3. Paroxysmal Atrial Fibrillation 4. Dizziness 5. Bilateral Carotid stenosis 6. Tobacco use DISCHARGE DIAGNOSES: same as above COMPLICATIONS/CHIEF COMPLAINT: Pneumonia HISTORY OF PRESENT ILLNESS: (As Per initial H&P) 74 yo female for one week history of generalized weakness, malaise, fatigue and dizziness. Denies shortness of breath but notes coughing. Denies chest pain, abdominal pain, N/V/D. PAST MEDICAL HISTORY: 1. CAD/stents x 2 RCA, 2000 2. Colon CA s/p resection 2015 3. depression 4. HTN 5. DLP 6. Frontal lobe seizures 7. nicotine abuse HOSPITAL COURSE: 1-PNA, CAP with Acute hypoxic respiratory Failure; CXR revealed infiltration at Left lower lung, There was no CT evidence of pulmonary embolism or thoracic aortic aneurysm or dissection. Pt was placed on IV Abx and NC O2, She responded well to treatment over the course of admission, ABx was switched to PO Levaquin for discharge 2-Paroxysmal Atrial Fibrillation, On telemetry, Initially on Lovenox, 2D echo ( see below), Was dc with Eliquis and Metoprolol 3-Dizziness, Most likely secondary to A Fib, Bilateral Internal Carotid S tenosis, asymptomatic, but was advised out patient follow up, MRA brain revealed no significant pathology. Pt was seen by Physical therapy 4-History of CAD, S/P stents x 2 RCA, Remained on aspirin, lisinopril, metoprolol and rosuvastatin 5-History of seizure remained on amitriptyline, Keppra 6- History of depression, remained on fluoxetine 7. Nicotine abuse, Counselling was provided at bedside, on bupropion DISCHARGE MEDICATIONS: Please see below. ALLERGIES: Please see below. PHYSICAL EXAMINATION ON DISCHARGE: VITAL SIGNS: Please see below. GENERAL APPEARANCE: awake alert and oriented NAD HEENT: neck supple no JVD no icterus YENIFER EOMI CARDIOVASCULAR: S1 S2 no murmur LUNGS: clear bilat no wheezing no rales ABDOMEN: soft, NT, +BS PSYCHIATRIC: mood affect appropriate LABORATORY DATA: Please see below. IMAGING: * CT ANGIO CHEST: 05/31/19 IMPRESSION: Consolidative infiltrate left lower lobe with small left effusion. Reactive left hilar and mediastinal lymph nodes. Tiny pericardial effusion. Large hiatal hernia. * MRI brain 05/31/19: IMPRESSION: Generalized volume loss, small vessel atherosclerotic changes, old lacunar infarct right basal ganglia. No acute intracranial lesion. * MRA Brain 05/31/19 MR angiographic findings: There is mild motion artifact. The distal vertebral arteries are patent and co-dominant. Basilar artery is a little tortuous but widely patent. The posterior cerebral and superior cerebellar vessels are normal and symmetric. The distal internal carotid arteries are unremarkable. Anterior and middle cerebral arteries appear intact. There is no visible alvarez aneurysm or arteriovenous malformation. Impression: Unremarkable MR angiography the brain. * CAROTID MRI IMPRESSION: Findings consistent with 75% stenosis in the proximal internal carotid arteries bilaterally. * CXR: 05/31/19 IMPRESSION: Large infiltrate left base question pneumonia. Large hiatal hernia. Mildly prominent heart. Question small left effusion. ECHO: DATE OF SERVICE: 06/03/2019 2D MEASUREMENTS: IVS 1.3 cm LV 5.4 cm LVPW 1.3 cm LA 4.4 cm Aorta 2.7 cm IVC 2.1 cm DOPPLER MEASUREMENTS: Peak velocity across the aortic valve 1.6 m/s Peak velocity across the LVOT 0.74 m/s Peak gradient across aortic valve 10 mmHg. Mitral E 1.1 Mitral A 1.2 with a ratio of 0.9 Maximum tricuspid valve velocity 2.9 m/s 2D COMMENTS: 1. Normal left ventricular size with mildly increased left ventricular wall thickness. Left ventricular systolic function is at the lower limits of normal between 50 and 55%. The inferior wall appeared to be hypokinetic. 2. Mildly enlarged left atrium. Normal right atrium and right ventricle. 3. The atrial septum appeared to be normal without evidence of defect or shunt. 4. Normal aortic root. 5. A small pericardial effusion was noted, no evidence of cardiac tamponade. Pleural effusion also was noted. 6. Mildly calcified aortic valve with normal leaflet excursion. Mildly calcified mitral annulus with normal anterior mitral valve leaflet motion. Could not rule out underlying mitral valve prolapse. Normal tricuspid valve and pulmonic valve. The proximal pulmonary artery branches were not well visualized. 7. The inferior vena cava was mildly enlarged, central venous pressure might be elevated. Doppler, it detects moderately severe mitral regurgitation, mild tricuspid regurgitation, trace pulmonic regurgitation. The calculated pulmonary artery systolic pressure varies between 40-50 mmHg. Abnormal relaxation pattern was noted across the mitral valve leaflets as well as mitral valve annulus consistent with features of grade 1 left ventricular diastolic dysfunction. IMPRESSION: 1. Low normal global left ventricular systolic function with regional wall motion abnormalities involving the inferior wall. There were features of left ventricular diastolic dysfunction, grade 1. 2. Moderately severe mitral regurgitation with mitral annulus calcification and mildly enlarged left atrium. Could not rule out underlying mitral valve prolapse. 3. Aortic valve sclerosis with trivial aortic stenosis, but no aortic radiation. 4. Mild tricuspid regurgitation with probably moderate pulmonary hypertension. 5. Trace pericardial effusion was noted, no evidence of cardiac tamponade. Pleural effusion was also noted. 6. There were features of elevated central venous pressure, the inferior vena cava/IVC was mildly enlarged. DD: AMERICA LAYNE MD 06/03/192042 DT: JAZLYN 06/04/19639 PROGNOSIS: Fair ACTIVITY: As tolerated, Fall precaution, avoid any minor injury DIET: Low salt DISCHARGE PLAN: DISPOSITION: 01 Home, Self-Care. DISCHARGE INSTRUCTIONS: 1. Fall precaution 2. Smoking cessation 3. Avoid trauma or minor injury 4. Return to ED with any warning signs ITEMS TO FOLLOWUP ON ON OUTPATIENT: 1. Follow with PCP 2. follow up with Vascular surgery 3. follow up with Cardiology DISCHARGE CONDITION: Stable, Afebrile, dyspnea improved, had no palpitations or dizziness TIME SPENT ON DISCHARGE: 40 minutes. Vital Signs/I&Os Vital Signs Date Time Temp Pulse Resp B/P (MAP) Pulse Ox O2 Delivery O2 Flow Rate FiO2 06/05/19 06:00 99.0 59 17 164/78 (106) 92 2.0 05/31/19 15:30 Nasal Cannula I&O- Last 24 Hours up to 6 AM 06/05/19 06:00 Intake Total 1600 ml Balance 1600 ml Laboratory Data Labs 24H Laboratory Tests 2 06/05/19 05:54: Immature Granulocyte % (Auto) 0.3, White Blood Count 3.3L, Red Blood Count 3.51L, Hemoglobin 9.8L, Hematocrit 30.0L, Mean Corpuscular Volume 85.5, Mean Corpuscular Hemoglobin 27.9, Mean Corpuscular Hemoglobin Concent 32.7, Red Cell Distribution Width 17.1H, Platelet Count 197, Neutrophils (%) (Auto) 61.4, Lymphocytes (%) (Auto) 18.7L, Monocytes (%) (Auto) 14.8H, Eosinophils (%) (Auto) 4.5H, Basophils (%) (Auto) 0.3, Neutrophils # (Auto) 2.0, Lymphocytes # (Auto) 0.6L, Monocytes # (Auto) 0.5, Eosinophils # (Auto) 0.2, Basophils # (Auto) 0.0, Nucleated Red Blood Cells % (auto) 0.0, Anion Gap 7L, Glomerular Filtration Rate > 60.0, Blood Urea Nitrogen 7, Creatinine 0.81, Sodium Level 142, Potassium Level 3.0#L, Chloride Level 109H, Carbon Dioxide Level 26, Calcium Level 8.2L CBC/BMP Laboratory Tests 06/05/19 05:54 Red Blood Count 3.51 L, Mean Corpuscular Volume 85.5, Mean Corpuscular Hemoglobin 27.9, Mean Corpuscular Hemoglobin Concent 32.7, Red Cell Distribution Width 17.1 H, Neutrophils (%) (Auto) 61.4, Lymphocytes (%) (Auto) 18.7 L, Monocytes (%) (Auto) 14.8 H, Eosinophils (%) (Auto) 4.5 H, Basophils (%) (Auto) 0.3, Neutrophils # (Auto) 2.0, Lymphocytes # (Auto) 0.6 L, Monocytes # (Auto) 0.5, Eosinophils # (Auto) 0.2, Basophils # (Auto) 0.0, Calcium Level 8.2 L Microbiology Microbiology 05/31/19 Blood Culture - Final, Complete NO GROWTH AFTER 5 DAYS 05/31/19 Blood Culture - Final, Complete NO GROWTH AFTER 5 DAYS 06/01/19 Respiratory Virus Panel (PCR) ([facility]) - Final, Complete Discharge Medications Scheduled Amitriptyline HCl (Amitriptyline HCl) 50 Mg Tablet, 50 MG PO QHS, (Reported) Apixaban (Eliquis) 5 Mg Tablet, 5 MG PO BID Aspirin (Aspir 81) 81 Mg Tablet.dr, 81 MG PO QHS, (Reported) Bupropion Hcl (Bupropion Xl) 150 Mg Tab.er.24h, 150 MG PO QHS, (Reported) Fluoxetine Hcl (Fluoxetine HCl) 20 Mg Capsule, 20 MG PO QHS, (Reported) Levofloxacin (Levaquin) 750 Mg Tablet, 750 MG PO DAILY Lisinopril (Lisinopril) 5 Mg Tablet, 5 MG PO QHS, (Reported) Melatonin (Melatonin) 10 Mg Capsule, 10 MG PO QHS, (Reported) Metoprolol Succinate (Metoprolol Succinate) 100 Mg Tab.er.24h, 100 MG PO QHS, (Reported) Rosuvastatin Calcium (Rosuvastatin Calcium) 40 Mg Tablet, 40 MG PO QHS, (Reported) levETIRAcetam (levETIRAcetam) 500 Mg Tablet, 1,000 MG PO QHS, (Reported) Allergies Coded Allergies: No Known Allergies (Unverified , 05/31/19) CHANDRAKANT BULLOCK MD Jun 05, 2019 19:21
== END 2019-06-05 10:17 | disposition home or self-care (01) | DRG 139 ==
LOC: M ED 11:11 → M ED INP 15:57 → M MSPAV 18:46
PROVIDERS: ADMIT Internal Medicine; ATTEND Hospitalist
DX: J18.9 Pneumonia, unspecified organism (principal); I48.0 Paroxysmal atrial fibrillation; I65.23 Occlusion and stenosis of bilateral carotid arteries; G40.909 Epilepsy, unspecified, not intractable, without status epilepticus; F32.9 Major depressive disorder, single episode, unspecified; I10 Essential (primary) hypertension; E78.5 Hyperlipidemia, unspecified; I25.10 Atherosclerotic heart disease of native coronary artery without angina pectoris; F17.200 Nicotine dependence, unspecified, uncomplicated; Z79.82 Long term (current) use of aspirin; Z90.49 Acquired absence of other specified parts of digestive tract; Z79.899 Other long term (current) drug therapy; Z95.5 Presence of coronary angioplasty implant and graft; Z85.038 Personal history of other malignant neoplasm of large intestine